=== PATIENT | female | born 1950 | race Caucasian/White ===

== ENCOUNTER 2021-07-05 06:00 | Day surgery (SDC) | payer MEDICARE ==
[2021-06-28 11:01] LABS: BASOPHILS % (AUTO) 0.5 % (0-1); EOSINOPHILS % (AUTO) 0.8 % (0-6); LYMPHOCYTES # (AUTO) 1.1 X10'3 (1.1-4.8); LYMPHOCYTES % (AUTO) 19.7 % (21-51); MEAN CORPUSCULAR HEMOGLOBIN 31.4 PG (27.0-31.0); MEAN CORPUSCULAR HGB CONC 33.3 g/dL (33.0-36.5); MEAN CORPUSCULAR VOLUME 94.3 FL (78-98); MEAN PLATELET VOLUME 7.3 FL (7.4-10.4); MONOCYTES # (AUTO) 0.4 X10'3 (0-0.9); MONOCYTES % (AUTO) 7.2 % (2-12); NEUTROPHILS # (AUTO) 4.1 X10'3 (1.8-7.7); NEUTROPHILS % (AUTO) 71.8 % (42-75); PRE OP HEMATOCRIT 39.8 % (35.0-45.0); PRE OP HEMOGLOBIN 13.2 g/dL (12.0-16.0); PRE OP PLATELET COUNT 240 X10'3 (140-440); RED BLOOD COUNT 4.22 X10'6 (4.20-5.60); RED CELL DISTRIBUTION WIDTH 13.5 % (11.5-14.5)
[2021-06-28 11:13] LABS: PRE OP PROTIME 10.3 SECONDS (9.0-12.0)
[2021-06-28 11:24] LABS: ALBUMIN 3.5 G/DL (3.4-5.0); ALBUMIN/GLOBULIN RATIO 0.8 (1.1-1.5); ALKALINE PHOSPHATASE 62 IU/L (46-116); BLOOD UREA NITROGEN 24 MG/DL (7-18); BUN/CREATININE RATIO 42.1 (6.6-38.0); CALCIUM 8.8 MG/DL (8.5-10.1); CHLORIDE 106 MMOL/L (99-107); CREATININE 0.57 MG/DL (0.40-0.90); PRE OP ALT 20 U/L (30-65); PRE OP ANION GAP 6 (8-16); PRE OP AST 16 U/L (10-37); PRE OP BILIRUB, TOTAL 0.3 MG/DL (0.0-1.0); PRE OP GLUCOSE 93 MG/DL (70-104); PRE OP POTASSIUM 3.9 MMOL/L (3.4-5.1); PRE OP SODIUM 141 MMOL/L (135-145); TOTAL CARBON DIOXIDE 28.9 MMOL/L (24-32); TOTAL PROTEIN 7.7 G/DL (6.4-8.2); eGFR > 90 ML/MIN
[2021-07-05] VITALS (14 sets, daily range): BP systolic 123–164; BP diastolic 65–95
[~2021-07-05] VITALS: Ht 154.9 cm; Wt 86.9 kg
[~2021-07-05 06:00] MED LIST: CELE-85 PO; CHOL400T8 PO; LACT1CAP75 PO; OMEG-79 PO; [UNRECOGNIZED DRUG - OTHER]; diazepam 5mg tablet PO ONE; famotidine 20mg tablet PO ONE; ringers solution, lacted 1,000 ML IV SCH
[2021-07-05] MEDS ORDERED: LIDOcaine 1% (10mg/ml) 2ml vial ONE (06:50)
[2021-07-05] MEDS ORDERED: cocaine 4% topical solution 4ml bottle ONE (07:11)
[2021-07-05] MEDS ORDERED: LIDOcaine 1% W/epiNEPHrine 1:100,000 20ml vial ONE (07:11)
[2021-07-05] MEDS ORDERED: oxymetazoline 15 ML nasal spray NS ONE (07:12)
[2021-07-05] MEDS ORDERED: mupirocin 2% ointment 22GM ONE (07:12)
[2021-07-05] MEDS: oxymetazoline 15 ML nasal spray NS ONE ×2 (07:24→09:26)
[2021-07-05] MEDS ORDERED: aprepitant 40mg capsule PO ONE (07:48)
[2021-07-05] MEDS ORDERED: scopolamine 1mg/72 hr patch TD ONE (07:48)
[2021-07-05] MEDS ORDERED: midazolam 1 mg/ML 2ml injection ONE (08:10)
[2021-07-05] MEDS ORDERED: fentaNYL/PF 50MCG/1 ML 2ML syringe ONE (08:10)
[2021-07-05] MEDS ORDERED: sevoflurane 250ml liquid IH ONE (08:14)
[2021-07-05] MEDS ORDERED: cefTAZidime 1gm inj ONE (08:47)
[2021-07-05] MEDS ORDERED: proCHLORperazine 10 MG/2 ml inj IV PRN (09:05)
[2021-07-05] MEDS ORDERED: ringers solution, lacted 1,000 ML IV SCH (09:05)
[2021-07-05] MEDS ORDERED: ondansetron/PF 4mg/2ml inj IV PRN (09:05)
[2021-07-05] MEDS ORDERED: morphine 4 MG/ML inj SYRINge IV PRN (09:05)
[2021-07-05] MEDS ORDERED: morphine 2 MG/ML inj. syringe IV PRN (09:05)
[2021-07-05] MEDS ORDERED: meperidine/PF 25mg/ml syringe IV PRN ×3 (09:05)
[2021-07-05] MEDS ORDERED: dexamethasone sod phosphate 4mg/ml inj. ONE (09:32)
[2021-07-05] MEDS ORDERED: rocuronium 10mg/ml inj IV ONE (09:32)
[2021-07-05] MEDS ORDERED: ondansetron/PF 4mg/2ml inj ONE (09:32)
[2021-07-05] MEDS ORDERED: propofol inj 20 ML IV ONE (09:32)
[2021-07-05] MEDS ORDERED: sugammadex 200mg/2ml injection IV ONE (09:33)
--- NOTE | 2021-07-05 11:20 | NUR ---
TRANSFER PATIENT TO [facility] ([place]) AND GIVE REPORT TO LATANYA DE RN WHERE SHE WILL RESUME PATIENT CARE TO PATIENT. ALL QUESTIONS ANSWERED. PATIENT BELONGING AT BEDSIDE AND SPOUSE AT BEDSIDE. Addendum: 07/05/21 at 1130 by Martin Melendrez RN Amended: Links added.
[2021-07-05] MEDS ORDERED: salt irrigation nasal spray 45 ML SPRAY NS SCH (11:28)
--- NOTE | 2021-07-05 11:35 | NUR ---
PT AWAKE, VSS, DENIES PAIN OR NAUSEA, AT BEDSIDE, BELONGINGS WITH PT, WILL LET PT WAKE UP A BIT MORE. MUSTACHE DRSG IN PLACE-NO BLEEDING NOTED.
--- NOTE | 2021-07-05 12:50 | NUR ---
PT UP AND DRESSED, ABLE TO VOID, NO N/V-TOLERATING SODA AND CRACKERS, DISCUSSED HOME INSTRUCTIONS WITH PT AND -ALL QUESTIONS ANSWERED, MIN BLEEDING-NOSE DRSG CHANGED AFTER NASAL SPRAY USED, VSS, DENIES PAIN, PIV D/CD-CANULA INTACT, TAKEN VIA W/C TO VEHICLE FOR TO TRANSPORT HOME WITH ALL BELONGINGS.
[2021-07-05] MEDS ORDERED: oxymetazoline 15 ML nasal spray NS SCH (20:00)
== END 2021-07-05 12:52 | disposition home or self-care (01) ==
LOC: PAS 06:00
PROVIDERS: ATTEND Otolaryngology
DX: J32.8 Other chronic sinusitis (principal); M19.90 Unspecified osteoarthritis, unspecified site; E66.9 Obesity, unspecified; Z68.36 Body mass index [BMI] 36.0-36.9, adult; Z20.822 Contact with and (suspected) exposure to COVID-19; Z98.890 Other specified postprocedural states; Z90.710 Acquired absence of both cervix and uterus; Z96.651 Presence of right artificial knee joint; Z90.49 Acquired absence of other specified parts of digestive tract; Z85.42 Personal history of malignant neoplasm of other parts of uterus; Z79.01 Long term (current) use of anticoagulants; Z79.899 Other long term (current) drug therapy
CPT/HCPCS: 31253; 31267; 36415; 61782; 80053; 82948; 85025; 85576; 85610; 85730; 87635; 93005; A6402; C9250; C9803; J0713; J1100; J2175; J2250; J2405; J2704; J3010; J3490; J7030; J7040; J7120; J8501; U0003; U0005; Z7506; Z7508; Z7512; A4618; A7000; J0694